=== PATIENT | male | born 2000 | race Caucasian/White ===

== ENCOUNTER 2019-10-02 09:50 | Day surgery (SDC) | payer OTHER ==
[~2019-10-02] VITALS: Ht 177.8 cm; Wt 63.0 kg
--- NOTE | 2019-10-02 10:00 | NUR ---
1000-Patient ambulated from [facility] [place] [facility] [place] [facility] difficulty. Verified allergies and medical history information. Vitals obtained and are stable. He denies taking any medications at home. Reports that bowel prep went well for colonoscopy. 1015-Patient is changed out of his clothes into hospital gown for procedure. IV started to his right hand #22g without difficulty and fluids are infusing easily. 1025-Parents brought back to sit with patient. Call stuart in reach and given explanation on how to use.
[2019-10-02 10:10] VITALS: BP 125/79; PULSE 84; TEMP 98
[2019-10-02 12:15] VITALS: BP 98/62; PULSE 83; TEMP 98.5
[2019-10-02 12:30] VITALS: BP 105/63; PULSE 84; TEMP 98.5
[2019-10-02 12:45] VITALS: BP 99/69; PULSE 74
[2019-10-02 13:00] VITALS: BP 101/68; PULSE 74
--- NOTE | 2019-10-02 15:41 | NUR ---
PT RETURNED FROM ENDO SUITE INTO [facility]. PT ALERT TO NAME, SLEEPY. ANSWERED QUESTIONS APPROPRIATELY. FATHER PRESENT IN THE ROOM. LUNGS CLEAR, HRR, BOWEL SOUNDS PRESENT. DENIES PAIN, NAUSEA. REQUESTS PEANUT BUTTER TOAST, WATER AND BINA CRACKERS. WILL CONT TO MONITOR PROGRESS.
--- NOTE | 2019-10-02 15:48 | NUR ---
PT TOLERATING FOOD AND FLUIDS, DENIES NAUSEA AND VOMITING. A/OX3. WILL MONITOR.
--- NOTE | 2019-10-02 15:50 | NUR ---
PT A/OX3. DENIES PAIN AND NAUSEA. TOLERATING FOOD AND FLUIDS. DISCHARGE INSTRUCTIONS GIVEN, PT VOICES UNDERSTANDING. PARENTS AND SISTER WITH PT. PT DISCHARGED VIA TO FAMILY VEHICLE, FATHER DRIVING.
== END 2019-10-02 13:25 | disposition home or self-care (01) ==
LOC: SDCO 09:50
DX: K60.1 Chronic anal fissure (principal); K92.1 Melena; K62.89 Other specified diseases of anus and rectum; K59.00 Constipation, unspecified; F17.210 Nicotine dependence, cigarettes, uncomplicated
CPT/HCPCS: J2250; J2405; J3010; J7030